=== PATIENT | female | born 1955 | race Hispanic/Latino ===

== ENCOUNTER 2019-11-15 16:50 | Emergency (ER) | payer OTHER ==
[~2019-11-15] VITALS: Ht 152.4 cm; Wt 81.6 kg
[2019-11-15] MEDS ORDERED: DIAZEPAM 2 MG TAB PO ONE (17:30)
[2019-11-15] MEDS ORDERED: KETOROLAC TROMETHAMINE 60 MG/2 ML VIAL IM ONE (17:30)
[2019-11-15] MEDS ORDERED: DIAZEPAM 5 MG TAB PO ONE (17:45)
--- NOTE | 2019-11-15 18:41 | Diagnostic Imaging Report ---
Exam: Right shoulder 2 views History: Pain Comparison: None. Findings: No fracture or malalignment. Joint spaces preserved. No abnormal soft tissue calcification or soft tissue defect. Impression: No acute osseous abnormality Signed by: Dr. Emmanuel Kathleen M.D. on 11/15/2019 6:39 PM
[2019-11-15] MEDS ORDERED: ULTRAM50 MG PO (19:53)
--- NOTE | 2019-11-15 20:00 | NUR ---
DR. TRAN IN TRIAGE DISCUSSING PT'S RESULTS, NEED FOR F/U WITH ORTHOPEDIC SURGEON AND D/C INSTRUCTIONS. PT HAS NO FURTHER QUESTIONS AT THIS TIME. PT VERBALIZES UNDERSTANDING OF PLAN OF CARE. NO ACUTE DISTRESS NOTED AT THIS TIME.
== END 2019-11-15 20:30 | disposition home or self-care (01) ==
LOC: ER 16:50
DX: R06.02 Shortness of breath (principal); M25.511 Pain in right shoulder; M77.9 Enthesopathy, unspecified; M75.91 Shoulder lesion, unspecified, right shoulder
CPT/HCPCS: 73030; 93005; 99283; J1885